=== PATIENT | female | born 1965 | race Two or more races ===

== ENCOUNTER 2022-02-16 19:19 | Emergency (ER) | payer SELFPAY ==
[~2022-02-16] VITALS: Ht 167.6 cm; Wt 73.0 kg
[2022-02-16] MEDS ORDERED: ACETAMINOPHEN 325MG TABLET PO ONE (21:45)
[2022-02-16] MEDS ORDERED: CYCLOBENZAPRINE 10MG TABLET PO ONE (21:45)
[2022-02-17 01:01] VITALS: BP 115/67
== END 2022-02-17 01:25 | disposition left against medical advice (07) ==
LOC: ER 19:19
DX: S09.8XXA Other specified injuries of head, initial encounter (principal); M54.89 Other dorsalgia; M25.562 Pain in left knee; M25.552 Pain in left hip; M25.551 Pain in right hip; V03.90XA Pedestrian on foot injured in collision with car, pick-up truck or van, unspecified whether traffic or nontraffic accident, initial encounter; Y93.01 Activity, walking, marching and hiking; Y92.488 Other paved roadways as the place of occurrence of the external cause
CPT/HCPCS: 71045; 73521; 73562; 99284